=== PATIENT | female | born 1950 | race Caucasian/White ===

== ENCOUNTER → 2016-09-11 | Outpatient (CLI) | payer OTHER, MEDICARE | LOC: FIMAGING 15:22 | PROVIDERS: ATTEND Family Medicine | DX: Z12.31 Encounter for screening mammogram for malignant neoplasm of breast (principal) | CPT/HCPCS: G0202 ==

== ENCOUNTER 2018-02-22 12:49 | Emergency (ER) | payer OTHER, MEDICARE ==
--- NOTE | 2018-02-22 14:53 | EDPHY ---
H & P Stated Complaint: Lightheaded, Increased Anxiety Time Seen by Provider: 02/22/18 13:59 HPI/ROS: CHIEF COMPLAINT: High blood pressure HISTORY OF PRESENT ILLNESS: This is a 67-year-old female with a history of hypertension for which she takes enalapril 2.5 mg daily at breakfast. She has been compliant with this medication. She comes to the emergency room today after speaking with the nurse in her primary care doctor's office. The patient does not usually check her blood pressure at home but checked it a couple of weeks ago and found to be high then. She checked yesterday and had a blood pressure 150/90. Today she went to a [employer] exercise class and while doing aerobic exercise she began to feel lightheaded. She had to sit down. She has taken this class before, but not recently. She became quite anxious about all of this, checked her blood pressure, and found to be 150/100. This prompted a call to her doctor's office. She is not currently feeling lightheaded or dizzy. She has been sleeping poorly lately (she thinks because of a new mattress). She denies headache, confusion, weakness, or numbness shortness of breath, chest pain. REVIEW OF SYSTEMS: A ten system review of systems was performed and is negative with the exception of the items mentioned in the HPI. Past medical history: Hypertension Anxiety Past surgical history: Social history: She lives alone. 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 No tobacco. No illicits. General Appearance: Alert. Vital signs reviewed. BP 174/91 at triage. Eyes: Pupils equal and round, no conjunctival injection, no discharge. Anicteric. ENT, Mouth: Mucous membranes are moist, no oropharyngeal erythema or edema. Neck: No lymphadenopathy, supple. Respiratory: Lungs are clear to auscultation; no wheezes, rales, or rhonchi. Cardiovascular: Regular rate and rhythm; no murmur, rub, or gallop. Gastrointestinal: Abdomen is soft and nontender, no masses or organomegaly, bowel sounds normal. Skin: Warm and dry, no rashes on exposed skin, normal color. Back: Nontender to palpation over the thoracolumbar spine. No CVAT. Extremities: No lower extremity edema, no calf tenderness or swelling. Neurological: Alert and oriented. Moving all four extremities easily and equally. Cranial nerves II through XII are examined and are intact (visual acuity not tested). Strength is 5 over 5 bilaterally with testing of all major motor groups. Sensation is intact to light touch over all 4 extremities. Deep tendon reflexes are 2+ in the biceps and knees bilaterally. Gait is normal. Psychiatric: Normal affect. - Personal History Current Tetanus Diphtheria and Acellular Pertussis (TDAP): Yes Tetanus Vaccine Date: 2017 - Medical/Surgical History Hx Asthma: No Hx Chronic Respiratory Disease: No Hx Diabetes: No Hx Cardiac Disease: No Hx Renal Disease: No Hx Cirrhosis: No Hx Alcoholism: No Hx HIV/AIDS: No Hx Splenectomy or Spleen Trauma: No Other PMH: Anxiety, c section, htn - Social History Smoking Status: Never smoked Constitutional: Initial Vital Signs Temperature (C) 36.6 C 02/22/18 12:56 Heart Rate 65 02/22/18 12:56 Respiratory Rate 18 02/22/18 12:56 Blood Pressure 174/91 H 02/22/18 12:56 O2 Sat (%) 96 02/22/18 12:56 O2 Delivery Mode Room Air Allergies/Adverse Reactions: No Known Allergies Allergy (Unverified 02/22/18 12:54) Home Medications: Medication Instructions Recorded Enalapril Maleate 02/22/18 ZYRTEC 02/22/18 Medical Decision Making - Diagnostics EKG Interpretation: EKG interpreted in [facility] by ED Physician. ED Course/Re-evaluation: 67 year old female with h/o HTN and lightheadedness during aerobic exercise. Not currently feeling dizzy or lightheaded. No chest pain or shortness of breath. EKG shows sinus rhythm at 65, low voltage, PAC. No acute ischemic changes. CBC, chemistries, troponin reviewed. Calcium slightly high at 10.5. Carbon dioxide slightly low at 21. Troponin normal. I do not suspect ACS--normal EKG, normal troponin, history not suggestive of ischemia. HEART score 3, low risk of MACE. This was dixscussed with her and she would like to forego any further testing in the ED, such as repeat EKG and repeat troponin. Her neurologic exam is normal. No evidence of cardiac ischemia. No proteinuria (UA reviewed), creatinine normal. Chest clear, no signs of CHF. I do not find evidence of end organ damage secondary to hypertension. BP at CO is 135/85 (no antihypertensive medication given). She did not faint and I do not suspect arrhythmia. I do not think that PE is likely. She is comfortable, and desirous of, returning home. She will follow up with her PCP concerning BP control. Danger signs reviewed. - Data Points Laboratory Results: Laboratory Results 02/22/18 15:15 02/22/18 15:15 Point of Care Test Results: Chemistry 02/22/18 15:25 POC Troponin I 0.01 ng/mL ng/mL (0.00-0.08) Departure - Departure Disposition: Home, Routine, Self-Care Clinical Impression: Hypertension Qualifiers: Hypertension type: essential hypertension Qualified Code(s): I10 - Essential ( primary) hypertension Condition: Good Instructions: Hypertension (ED) Additional Instructions: Follow up with With Dr. Bragg. Take your blood pressure cuff with you when you go to the appointment. Check your blood pressure once or twice daily, not more than that, and record the readings. Continue with the blood pressure medication at its current dose. . Referrals: Haydee Bragg MD [Primary Care Provider] - As per Instructions
[2018-02-22 15:27] LABS: PLATELET COUNT 211 10^3/uL (150-400)
[2018-02-22 16:45] VITALS: BP 135/85
--- NOTE | 2018-02-22 20:58 | CPEKG ---
Test Reason : OPEN Blood Pressure : / mmHG Vent. Rate : 065 BPM Atrial Rate : 065 BPM P-R Int : 123 ms QRS Dur : 080 ms QT Int : 429 ms P-R-T Axes : 046 002 033 degrees QTc Int : 447 ms Sinus rhythm Atrial premature complex Probable left atrial enlargement Low voltage, extremity and precordial leads Confirmed by Negar Tay ([id number] on 02/22/2018 8:58:09 PM Referred By: Confirmed By:Negar Tay
== END 2018-02-22 16:51 | disposition home or self-care (01) ==
DX: R42 Dizziness and giddiness (principal); I10 Essential (primary) hypertension; F41.9 Anxiety disorder, unspecified; Z79.899 Other long term (current) drug therapy
CPT/HCPCS: 84484-PO